=== PATIENT | female | born 1970 | race Caucasian/White ===

== ENCOUNTER → 2019-03-10 | Outpatient (CLI) | payer SELFPAY ==
[2019-03-10 13:41] LABS: Chlamydia Trachomatis by PCR Negative (Negative); Neisserai gonorrhoeae by PCR Negative (Negative); Probe Check PASS; Sample Adequacy Control PASS; Specimen Processing Control PASS
[2019-03-18 11:35] LABS: HPV APTIMA, High Risk Negative (Negative)
== END | disposition home or self-care (01) ==
LOC: LABSPEC 10:12
PROVIDERS: Visit Provider Obstetrics & Gynecology
DX: Z12.4 Encounter for screening for malignant neoplasm of cervix (principal); Z11.3 Encounter for screening for infections with a predominantly sexual mode of transmission
CPT/HCPCS: 87491; 87591; 87624; 88175; G0145

== ENCOUNTER → 2019-03-17 | Outpatient (CLI) | payer SELFPAY ==
--- NOTE | 2019-03-17 15:36 | BI_ITS ---
MAMMOGRAPHY - BILATERAL SCREENING 3-D TOMOSYNTHESIS REASON FOR EXAM: Female, 48 years old. Bilateral Screening 3-D tomosynthesis PERTINENT HISTORY: No significant family history. TECHNIQUE: 2-D mammograms and 3-D Tomosynthesis of the breast (s) were performed. CAD was performed. COMPARISON: None. FINDINGS: The breast composition is heterogeneously dense that can obscure small breast masses. Scattered benign calcifications are seen. No dense spiculated masses or suspicious microcalcifications are identified. No architectural distortion is identified. There is no skin thickening or retraction. There has been no significant change since the prior study. BI/SCREEN MAMM (CAD) W/JOHN BILAT IMPRESSION: No mammographic signs of malignancy. Routine yearly mammograms recommended. ASSESSMENT CATEGORY: BIRADS Category 2: Benign. A letter regarding these results will be sent to the patient by the facility within 30 days. FOLLOW UP RECOMMENDATION: Yearly follow up mammogram recommended. (A) Approximately 10% of breast cancers are not detected by mammography. A normal mammogram should not delay biopsy of a clinically suspicious abnormality. Electronically Signed: Gabriel Arita MD at 14:14 EDT , Service support ,
== END | disposition home or self-care (01) ==
PROVIDERS: Referring Provider Obstetrics & Gynecology; Visit Provider Obstetrics & Gynecology
DX: Z12.31 Encounter for screening mammogram for malignant neoplasm of breast (principal)
CPT/HCPCS: 77063; 77067

== ENCOUNTER 2021-10-07 10:59 | Outpatient (CLI) | payer SELFPAY ==
--- NOTE | 2021-10-07 11:05 | RAD_ITS ---
STUDY: X-RAY - RIGHT SHOULDER REASON FOR EXAM: Female, 51 years old. recent right shoulder pain, hx of rotator cuff surgery 2011 TECHNIQUE: 4 view(s) of the shoulder. COMPARISON: None. FINDINGS: Normal glenohumeral articulation. Normal acromioclavicular joint. Normal acromion. Normal humeral head and visualized proximal humerus. The soft tissue structures are unremarkable. There is no demonstrated fracture. Normal visualized pulmonary apex. RAD/Shoulder min 2 Views IMPRESSION: Normal x-ray examination of the shoulder. Electronically Signed: Yomi Ellington MD at 17:01 EST ,
== END 2021-10-07 23:59 | disposition home or self-care (01) ==
PROVIDERS: PCP Internal Medicine; Referring Provider Internal Medicine; Visit Provider Internal Medicine
DX: M25.511 Pain in right shoulder (principal)
CPT/HCPCS: 73030

== ENCOUNTER → 2024-04-12 | Outpatient (CLI) | payer SELFPAY ==
--- NOTE | 2024-04-12 07:01 | ECHOD_ITS ---
Reason For Study: Abn EKG Procedure This was a 2D Doppler, Color Flow transthoracic echocardiogram. Exam performed in department. Left Ventricle Normal LV size. Left ventricular systolic function is normal. The left ventricular ejection fraction is 60 %. No regional wall motion abnormalities noted. Right Ventricle Normal RV size. Normal systolic function. Atria Normal left atrium. Normal right atrium. Mitral Valve Normal mitral valve. Tricuspid Valve Normal tricuspid valve. Aortic Valve Trisinus/trileaflet aortic valve. Pulmonic Valve Normal pulmonic valve. Great Vessels Normal aortic root. The pulmonary artery is normal size. Normal inferior vena cava. Pericardium/Pleural No pericardial effusion. MMode/2D Measurements & Calculations LVIDd: 4.6 cm IVSd: 0.76 cm Ao root diam: 2.9 cm LVIDs: 2.8 cm LVPWd: 0.89 cm RVDd: 2.8 cm FS: 39.7 % LAV(MOD-bp): 27.8 ml LVAd ap4: 19.3 cm2 SV(MOD-sp4): 30.1 ml LAV(MOD-bp) Indexed: 16.0 ml/m2 LVLd ap4: 6.4 cm LAV(MOD-sp2): 20.3 ml EDV(MOD-sp4): 48.2 ml LAV(MOD-sp4): 30.2 ml EDV(sp4-el): 50.0 ml LVAs ap4: 10.9 cm2 LVLs ap4: 5.6 cm ESV(MOD-sp4): 18.1 ml ESV(sp4-el): 17.8 ml EF(MOD-sp4): 62.5 % EF(sp4-el): 64.3 % SV(sp4-el): 32.1 ml LA A4 area: 13.9 cm2 LA dimension(2D): 2.9 cm RA A4 area: 8.0 cm2 Time Measurements MV dec time: 0.32 sec Doppler Measurements & Calculations MV E max refugio: 52.1 cm/sec Lat Peak E' Refugio: 10.5 cm/sec Med Peak E' Refugio: 5.6 cm/sec MV A max refugio: 68.3 cm/sec E/E' lat: 5.0 E/E' med: 9.3 MV E/A: 0.76 Ao V2 max: 161.1 cm/sec LV V1 max: 118.0 cm/sec MV dec slope: 161.1 cm/sec2 Ao max P.4 mmHg LV V1 max P.6 mmHg Ao V2 mean: 119.4 cm/sec Ao mean P.1 mmHg Ao V2 VTI: 31.8 cm PA V2 max: 70.6 cm/sec ECHO/Echo Complete Interpretation Summary Normal LV size. Left ventricular systolic function is normal. The left ventricular ejection fraction is 60 %. Structurally normal valves. Ordering Physician: Shaylee Hammonds Referring Physician: Shaylee Hammonds Performed By: Maria Cohen, DIANE, RVT
--- NOTE | 2024-04-12 12:08 | STRESSREP_ITS ---
Stress Test Report Exercise myocardial perfusion stress test. 54-year-old lady with a history of abnormal EKG Stress protocol: Resting EKG demonstrates normal sinus rhythm with a rate of 75 bpm resting blood pressure is 122/82 mmHg. The patient exercised according to the regular Prince protocol for a total duration of 7 minutes attaining a maximum heart rate of 141 bpm which was 84% of maximum predicted heart rate; the maximum workload was 10.0 metabolic equivalents. At rest there were no ST or T wave changes noted to suggest ischemia and at peak exercise upsloping ST changes only were noted which did not meet the criteria for ischemia. No clinical angina was noted the test was terminated due to the target heart rate being achieved/fatigue. The peak blood pressure was 172/82 mmHg. Rate-pressure product was 22,800. Myocardial perfusion protocol. 12.0 mCi of technetium 99m sestamibi was injected at rest. The patient exercised according to regular Prince protocol for total duration of 7 minutes and at peak exercise 34.4 mCi of technetium 99m sestamibi was injected stress images were obtained stress and rest images were reconstructed in comparing the short axis vertical long and horizontal long axis. Gated images were also obtained. Perfusion SPECT analysis: Review of the stress images demonstrate normal uptake of tracer noted in all ar eas of the myocardium. The resting images similarly demonstrate normal uptake of tracer noted in all areas of the myocardium. No areas of reversibility are noted to suggest ischemia no previous infarct was noted. Gated SPECT analysis: The gated ejection fraction is 69%. Conclusion: Normal exercise myocardial perfusion stress test at a high workload Preserved ejection fraction.
== END | disposition home or self-care (01) ==
PROVIDERS: PCP Internal Medicine; Referring Provider Internal Medicine; Visit Provider Internal Medicine
DX: I45.10 Unspecified right bundle-branch block (principal); R94.31 Abnormal electrocardiogram [ECG] [EKG]
CPT/HCPCS: 78452; 93017; 93306; A9500; A4216